=== PATIENT | female | born 1955 | race Caucasian/White ===

== ENCOUNTER 2020-04-24 09:54 | Inpatient (IN) ==
[2020-04-24] MEDS ORDERED: cefTRIAXone 2 GM ADDV.VIAL 2 GM in NS 0.9% 100 ml BAG 100 ML IVPB ONE (10:06)
[2020-04-24] MEDS ORDERED: NS 0.9% 1000 ml BAG 1,000 ML IV ONE (10:10)
[2020-04-24 10:26] LABS: ABS Lymphocytes 0.3 10^3/ul (1.0-4.8); ABS Monocytes 0.4 10^3/ul (0-0.8); ABS Neutrophils 13.2 10^3/ul (1.5-7.7); Hematocrit 39 % (35-47); Lymphocyte % 2.2 %; Mean Corpuscular HGB Conc 34 g/dL (31-36); Mean Corpuscular Hemoglobin 31 pg (27-31); Mean Corpuscular Volume 93 fL (80-97); Mean Platelet Volume 7.8 fL (7.4-10.4); Platelet Count 249 10^3/uL (150-450); Red Blood Count 4.15 10^6 /uL (3.70-4.87); Red Cell Distribution Width 13 % (10-15); White Blood Count 13.9 10^3/uL (3.5-10.8)
[2020-04-24 10:38] LABS: ALT 39 U/L (7-52); AST 34 U/L (13-39); Albumin 3.7 g/dL (3.2-5.2); Albumin/Globulin Ratio 1.4 (1-3); Alkaline Phosphatase 91 U/L (34-104); Anion Gap 8 mmol/L (2-11); BUN/Creatinine Ratio 23.4 (8-20); Blood Urea Nitrogen 18 mg/dL (6-24); C Reactive Protein 220.97 mg/L (<8.01); CO2 Carbon Dioxide 27 mmol/L (22-32); Calcium 9.1 mg/dL (8.6-10.3); Chloride 94 mmol/L (101-111); EGFR African American 91.3 (>60); EGFR Non-African American 75.5 (>60); Globulin 2.6 g/dL (2-4); Glucose 149 mg/dL (70-100); Sodium 129 mmol/L (135-145); Total Protein 6.3 g/dL (6.4-8.9)
[2020-04-24 10:47] LABS: Activated Partial Thrombo Time 29.3 seconds (26.0-38.0); INR 1.03 (0.82-1.09)
[2020-04-24 10:48] LABS: Troponin I 0.04 ng/mL (<0.03)
[2020-04-24 11:09] LABS: Influenza A Molecular Negative (Negative); Influenza B Molecular Negative (Negative)
[2020-04-24] MEDS ORDERED: Al Hydrox/Mg Hydrox/Simet LIQ 30 ML UDC PO PRN (12:39)
[2020-04-24 14:04] LABS: Troponin I 0.06 ng/mL (<0.03)
[2020-04-24] MEDS: NS 0.9% 1000 ml BAG 1,000 ML IV SCH (15:16)
[2020-04-24] MEDS: Heparin 5000 UNITS/ML 1 mL VIAL SUBCUT SCH ×2 (15:16→20:52)
[2020-04-24] MEDS: CMCS:Desvenlafaxine 50 mg TAB (NF) PO SCH (15:17)
[2020-04-24 20:55] LABS: Troponin I 0.03 ng/mL (<0.03)
[2020-04-24 23:49] LABS: Urine Appearance Cloudy; Urine Bilirubin Negative (Negative); Urine Blood Negative (Negative); Urine Color Yellow; Urine Glucose Negative (Negative); Urine Ketones Negative (Negative); Urine Nitrite Negative (Negative); Urine Protein 1+(30 mg/dL) (Negative); Urine Specific Gravity 1.021 (1.010-1.030); Urine Urobilinogen Negative (Negative)
[2020-04-24 23:53] LABS: Urine Bacteria Absent (Absent); Urine Red Blood Cell 2+(6-10/hpf) (Absent); Urine Squamous Epithelial Cell Present (Absent); Urine White Blood Cell 3+(>20/hpf) (Absent)
[2020-04-25] MEDS: NS 0.9% 1000 ml BAG 1,000 ML IV SCH ×2 (01:59→13:33)
[2020-04-25] MEDS: Heparin 5000 UNITS/ML 1 mL VIAL SUBCUT SCH ×3 (05:20→20:08)
[2020-04-25] MEDS: CMCS:Desvenlafaxine 50 mg TAB (NF) PO SCH (08:03)
[2020-04-25] MEDS: cefTRIAXone 1 gm/50 mL NS BAG 1 GM/50 ML BAG IVPB SCH (08:04)
[2020-04-25 08:51] LABS: ABS Lymphocytes 0.4 10^3/ul (1.0-4.8); ABS Monocytes 0.3 10^3/ul (0-0.8); ABS Neutrophils 9.9 10^3/ul (1.5-7.7); Eosinophil % 0.1 %; Hematocrit 33 % (35-47); Hemoglobin 11.5 g/dL (12.0-16.0); Lymphocyte % 4.1 %; Mean Corpuscular HGB Conc 34 g/dL (31-36); Mean Corpuscular Hemoglobin 32 pg (27-31); Mean Corpuscular Volume 93 fL (80-97); Mean Platelet Volume 7.8 fL (7.4-10.4); Platelet Count 198 10^3/uL (150-450); Red Blood Count 3.62 10^6 /uL (3.70-4.87); Red Cell Distribution Width 13 % (10-15); White Blood Count 10.7 10^3/uL (3.5-10.8)
[2020-04-25 09:02] LABS: BUN/Creatinine Ratio 20.7 (8-20); Calcium 8.4 mg/dL (8.6-10.3); EGFR African American 126.6 (>60); EGFR Non-African American 104.7 (>60)
[2020-04-25 11:38] LABS: C Reactive Protein 213.79 mg/L (<8.01)
[2020-04-26] MEDS: Heparin 5000 UNITS/ML 1 mL VIAL SUBCUT SCH (05:08)
[2020-04-26 07:46] LABS: BUN/Creatinine Ratio 13.2 (8-20); C Reactive Protein 132.03 mg/L (<8.01); Calcium 8.2 mg/dL (8.6-10.3); EGFR African American 140.5 (>60); EGFR Non-African American 116.1 (>60)
[2020-04-26] MEDS: CMCS:Desvenlafaxine 50 mg TAB (NF) PO SCH (07:52)
[2020-04-26] MEDS: cefTRIAXone 1 gm/50 mL NS BAG 1 GM/50 ML BAG IVPB SCH (08:08)
[2020-04-26 09:13] VITALS: BP 134/78
== END 2020-04-26 11:10 | disposition home or self-care (01) | DRG 872 ==
LOC: ED 09:54 → MEDTELE 12:39
PROVIDERS: ADMIT Internal Medicine; ATTEND Internal Medicine

== ENCOUNTER 2020-07-24 11:10 | Inpatient (IN) ==
[2020-07-24] MEDS ORDERED: Ondansetron 4 mg VIAL 2 MG/ML 2 ml VIAL IV PRN (11:38)
[2020-07-24] MEDS ORDERED: NS 0.9% 1000 ml BAG 1,000 ML IV ONE ×2 (11:41→12:05)
[2020-07-24] MEDS ORDERED: cefTRIAXone 1 gm/50 mL NS BAG 1 GM/50 ML BAG IV ONE (11:42)
[2020-07-24 12:16] LABS: ABS Eosinophils 0.2 10^3/ul (0-0.6); ABS Lymphocytes 0.9 10^3/ul (1.0-4.8); ABS Monocytes 0.5 10^3/ul (0-0.8); ABS Neutrophils 4.7 10^3/ul (1.5-7.7); Eosinophil % 2.5 %; Hematocrit 39 % (35-47); Hemoglobin 13.1 g/dL (12.0-16.0); Lymphocyte % 13.8 %; Mean Corpuscular HGB Conc 33 g/dL (31-36); Mean Corpuscular Hemoglobin 31 pg (27-31); Mean Corpuscular Volume 94 fL (80-97); Mean Platelet Volume 7.1 fL (7.4-10.4); Platelet Count 250 10^3/uL (150-450); Red Blood Count 4.19 10^6 /uL (3.70-4.87); Red Cell Distribution Width 14 % (10-15); White Blood Count 6.3 10^3/uL (3.5-10.8)
[2020-07-24 12:33] LABS: C Reactive Protein 55.08 mg/L (<8.01); EGFR African American 103.3 (>60); EGFR Non-African American 85.4 (>60); Magnesium 1.9 mg/dL (1.9-2.7); Potassium 3.9 mmol/L (3.5-5.0)
[2020-07-24] MEDS: NS 0.9% 1000 ml BAG 1,000 ML IV SCH ×2 (14:06→19:13)
[2020-07-24] MEDS: Enoxaparin 40 MG/0.4 ML SYR SUBCUT SCH (14:06)
[2020-07-25] MEDS: NS 0.9% 1000 ml BAG 1,000 ML IV SCH (04:34)
[2020-07-25 05:06] LABS: ABS Eosinophils 0.3 10^3/ul (0-0.6); ABS Lymphocytes 1.7 10^3/ul (1.0-4.8); ABS Monocytes 0.4 10^3/ul (0-0.8); ABS Neutrophils 2.5 10^3/ul (1.5-7.7); Eosinophil % 5.2 %; Hematocrit 33 % (35-47); Hemoglobin 11.3 g/dL (12.0-16.0); Lymphocyte % 34.5 %; Mean Corpuscular HGB Conc 34 g/dL (31-36); Mean Corpuscular Hemoglobin 32 pg (27-31); Mean Corpuscular Volume 95 fL (80-97); Mean Platelet Volume 7.4 fL (7.4-10.4); Platelet Count 183 10^3/uL (150-450); Red Blood Count 3.52 10^6 /uL (3.70-4.87); Red Cell Distribution Width 14 % (10-15); White Blood Count 4.8 10^3/uL (3.5-10.8)
[2020-07-25 05:25] LABS: Calcium 7.9 mg/dL (8.6-10.3); EGFR African American 128.8 (>60); EGFR Non-African American 106.4 (>60); Magnesium 1.7 mg/dL (1.9-2.7); Potassium 3.3 mmol/L (3.5-5.0)
[2020-07-25] MEDS ORDERED: Magnesium Sulfate 2 gm BAG 2 GM/50 ML BAG IVPB ONE (07:34)
[2020-07-25] MEDS ORDERED: Potassium Chlor 20 meq TAB.ER PO ONE (07:35)
[2020-07-25] MEDS: CMCS:Desvenlafaxine 50 mg TAB (NF) PO SCH (09:58)
[2020-07-25] MEDS: Amphetamine/Dextroam ER 10(NF) 10 mg CAP.ER PO SCH (09:58)
[2020-07-25] MEDS: Cholecalciferol (VIT D3) 400 units TAB PO SCH (09:59)
[2020-07-25] MEDS: cefTRIAXone 1 gm/50 mL NS BAG 1 GM/50 ML BAG IVPB SCH (12:21)
[2020-07-25] MEDS: Enoxaparin 40 MG/0.4 ML SYR SUBCUT SCH (13:34)
[2020-07-26 05:17] LABS: ABS Eosinophils 0.4 10^3/ul (0-0.6); ABS Lymphocytes 1.7 10^3/ul (1.0-4.8); ABS Monocytes 0.4 10^3/ul (0-0.8); ABS Neutrophils 1.9 10^3/ul (1.5-7.7); Eosinophil % 8.8 %; Hematocrit 36 % (35-47); Mean Corpuscular HGB Conc 33 g/dL (31-36); Mean Corpuscular Hemoglobin 32 pg (27-31); Mean Corpuscular Volume 96 fL (80-97); Mean Platelet Volume 7.1 fL (7.4-10.4); Platelet Count 217 10^3/uL (150-450); Red Blood Count 3.76 10^6 /uL (3.70-4.87); Red Cell Distribution Width 14 % (10-15); White Blood Count 4.4 10^3/uL (3.5-10.8)
[2020-07-26 05:34] LABS: Calcium 8.5 mg/dL (8.6-10.3); EGFR African American 134.2 (>60); EGFR Non-African American 110.9 (>60); Potassium 3.8 mmol/L (3.5-5.0)
[2020-07-26 08:00] VITALS: BP 126/77
[2020-07-26] MEDS: CMCS:Desvenlafaxine 50 mg TAB (NF) PO SCH (08:01)
[2020-07-26] MEDS: Amphetamine/Dextroam ER 10(NF) 10 mg CAP.ER PO SCH (08:01)
[2020-07-26] MEDS: Cholecalciferol (VIT D3) 400 units TAB PO SCH (08:02)
[2020-07-26 08:33] LABS: C Reactive Protein 13.08 mg/L (<8.01)
[2020-07-26] MEDS: cefTRIAXone 1 gm/50 mL NS BAG 1 GM/50 ML BAG IVPB SCH (12:54)
[2020-07-26] MEDS: Enoxaparin 40 MG/0.4 ML SYR SUBCUT SCH (12:58)
== END 2020-07-26 15:15 | disposition home or self-care (01) ==
LOC: ED 11:10 → MED 11:10
PROVIDERS: ADMIT Internal Medicine; ATTEND Internal Medicine

== ENCOUNTER 2020-11-23 12:02 | Inpatient (IN) ==
[2020-11-23] MEDS ORDERED: cefTRIAXone 1 gm/50 mL NS BAG 1 GM/50 ML BAG IV ONE (12:50)
[2020-11-23 13:44] LABS: ABS Lymphocytes 0.4 10^3/ul (1.0-4.8); ABS Monocytes 0.5 10^3/ul (0-0.8); ABS Neutrophils 14.2 10^3/ul (1.5-7.7); Hematocrit 42 % (35-47); Lymphocyte % 2.4 %; Mean Corpuscular HGB Conc 34 g/dL (31-36); Mean Corpuscular Hemoglobin 32 pg (27-31); Mean Corpuscular Volume 95 fL (80-97); Mean Platelet Volume 7.2 fL (7.4-10.4); Platelet Count 237 10^3/uL (150-450); Red Blood Count 4.38 10^6 /uL (3.70-4.87); Red Cell Distribution Width 14 % (10-15); White Blood Count 15.1 10^3/uL (3.5-10.8)
[2020-11-23 14:12] LABS: ALT 33 U/L (7-52); AST 20 U/L (13-39); Albumin/Globulin Ratio 1.4 (1-3); Alkaline Phosphatase 101 U/L (35-149); Anion Gap 9 mmol/L (2-11); Blood Urea Nitrogen 18 mg/dL (6-24); CO2 Carbon Dioxide 25 mmol/L (22-32); Chloride 97 mmol/L (101-111); EGFR African American 105.1 (>60); EGFR Non-African American 86.8 (>60); Globulin 2.9 g/dL (2-4); Glucose 139 mg/dL (70-100); Potassium 3.8 mmol/L (3.5-5.0); Sodium 131 mmol/L (135-145); Total Protein 6.9 g/dL (6.4-8.9)
[2020-11-23 14:14] LABS: CRP High Sensitivity > 80.00 mg/L (<2.00)
[2020-11-23 15:11] LABS: Erythrocyte Sed Rate 17 mm/Hr (0-29)
[2020-11-23] MEDS: Enoxaparin 40 MG/0.4 ML SYR SUBCUT SCH (18:32)
[2020-11-23] MEDS: NS 0.9% 1000 ml BAG 1,000 ML IV SCH (19:09)
[2020-11-24] MEDS: NS 0.9% 1000 ml BAG 1,000 ML IV SCH (01:34)
[2020-11-24 05:50] LABS: Hematocrit 38 % (35-47); Hemoglobin 12.8 g/dL (12.0-16.0); Mean Corpuscular HGB Conc 34 g/dL (31-36); Mean Corpuscular Hemoglobin 32 pg (27-31); Mean Corpuscular Volume 96 fL (80-97); Mean Platelet Volume 7.2 fL (7.4-10.4); Platelet Count 201 10^3/uL (150-450); Red Blood Count 4.01 10^6 /uL (3.70-4.87); Red Cell Distribution Width 15 % (10-15); White Blood Count 9.5 10^3/uL (3.5-10.8)
[2020-11-24 06:11] LABS: Calcium 8.5 mg/dL (8.6-10.3); EGFR African American 112.7 (>60); EGFR Non-African American 93.1 (>60); Potassium 3.5 mmol/L (3.5-5.0)
[2020-11-24] MEDS: DESVENLAFAXINE 25 MG PO SCH (09:40)
[2020-11-24] MEDS: CMCS:Desvenlafaxine 50 mg TAB (NF) PO SCH (09:40)
[2020-11-24] MEDS: cefTRIAXone 1 gm/50 mL NS BAG 1 GM/50 ML BAG IVPB SCH (09:44)
[2020-11-24] MEDS: Enoxaparin 40 MG/0.4 ML SYR SUBCUT SCH (16:23)
[2020-11-25] MEDS: CMCS:Desvenlafaxine 50 mg TAB (NF) PO SCH (09:24)
[2020-11-25] MEDS: cefTRIAXone 1 gm/50 mL NS BAG 1 GM/50 ML BAG IVPB SCH (09:42)
[2020-11-25] MEDS: DESVENLAFAXINE 25 MG PO SCH (09:42)
[2020-11-25] MEDS ORDERED: Amphetamine MIXED SALT 10mgTAB PO SCH (12:15)
[2020-11-25 12:18] VITALS: BP 129/76
== END 2020-11-25 13:15 | disposition home or self-care (01) | DRG 603 ==
LOC: ED 12:02 → MEDTELE 15:16 → SUATTDRO 15:16
PROVIDERS: ADMIT Internal Medicine; ATTEND Internal Medicine

== ENCOUNTER 2021-10-06 17:19 | Observation (INO) ==
[2021-10-06] MEDS ORDERED: Clindamycin 600 MG/D5W BAG 600 MG/50 ML BAG IV ONE (19:17)
[2021-10-06] MEDS ORDERED: NS 0.9% 1000 ml BAG 1,000 ML IV ONE (19:22)
[2021-10-06 19:32] LABS: ABS Eosinophils 0.1 10^3/ul (0-0.6); ABS Lymphocytes 0.3 10^3/ul (1.0-4.8); ABS Monocytes 0.3 10^3/ul (0-0.8); ABS Neutrophils 8.5 10^3/ul (1.5-7.7); Eosinophil % 0.6 %; Hematocrit 40 % (35-47); Hemoglobin 13.2 g/dL (12.0-16.0); Lymphocyte % 3.3 %; Mean Corpuscular HGB Conc 33 g/dL (31-36); Mean Corpuscular Hemoglobin 31 pg (27-31); Mean Corpuscular Volume 92 fL (80-97); Platelet Count 239 10^3/uL (150-450); Red Blood Count 4.31 10^6 /uL (3.70-4.87); Red Cell Distribution Width 14 % (10-15); White Blood Count 9.2 10^3/uL (3.5-10.8)
[2021-10-06 20:08] LABS: Activated Partial Thrombo Time 27.4 seconds (26.0-38.0); INR 1.01 (0.89-1.11)
[2021-10-06 20:10] LABS: Albumin 4.1 g/dL (3.2-5.2); Albumin/Globulin Ratio 1.9 (1-3); C Reactive Protein 3.1 mg/L (<8.01); CRP High Sensitivity 2.7 mg/L (<2.00); Calcium 9.1 mg/dL (8.6-10.3); Globulin 2.2 g/dL (2-4); Potassium 4.1 mmol/L (3.5-5.0); Total Bilirubin 0.4 mg/dL (0.2-1.0); Total Protein 6.3 g/dL (6.4-8.9); eGFR CKD-EPI 83.7 (>60)
[2021-10-06 21:59] LABS: Urine Appearance Clear; Urine Color Yellow; Urine Ketones Negative (Negative); Urine Specific Gravity 1.025 (1.005-1.030); Urine Urobilinogen 0.2 (Negative) (Negative)
[2021-10-06 22:00] LABS: Urine Bilirubin Negative (Negative); Urine Blood Trace (Intact) (Negative); Urine Glucose Negative (Negative); Urine Nitrite Negative (Negative); Urine Protein Negative (Negative)
[2021-10-06 22:19] LABS: Urine Bacteria Absent (Absent); Urine Red Blood Cell 1+(3-5/hpf) (Absent); Urine Squamous Epithelial Cell Present (Absent); Urine White Blood Cell 2+(11-20/hpf) (Absent)
[2021-10-06] MEDS ORDERED: NS 0.9% 1000 ml BAG 1,000 ML IV SCH (23:45)
[2021-10-06] MEDS ORDERED: cefTRIAXone 1 gm/50 mL D5W 1 GM/50 ML BAG IV ONE (23:45)
[2021-10-06] MEDS ORDERED: Al Hydrox/Mg Hydrox/Simet LIQ 30 ML UDC PO PRN (23:52)
[2021-10-07] MEDS: Enoxaparin 40 MG/0.4 ML SYR SUBCUT SCH (06:03)
[2021-10-07] MEDS: CMC:Desvenlafaxine 50 mg TAB (NF) PO SCH (08:23)
[2021-10-07] MEDS: DESVENLAFAXINE 25 MG PO SCH ×3 (08:24→11:48)
[2021-10-07] MEDS: Amphetamine/Dextroam ER 10(NF) 10 mg CAP.ER PO SCH ×2 (09:50→14:50)
[2021-10-07] MEDS ORDERED: cefTRIAXone 1 gm/50 mL D5W 1 GM/50 ML BAG IV SCH (21:00)
[2021-10-08] MEDS: Enoxaparin 40 MG/0.4 ML SYR SUBCUT SCH (05:20)
[2021-10-08 05:57] LABS: Hematocrit 35 % (35-47); Mean Corpuscular HGB Conc 34 g/dL (31-36); Mean Corpuscular Hemoglobin 31 pg (27-31); Mean Corpuscular Volume 91 fL (80-97); Platelet Count 207 10^3/uL (150-450); Red Blood Count 3.89 10^6 /uL (3.70-4.87); Red Cell Distribution Width 14 % (10-15); White Blood Count 10.1 10^3/uL (3.5-10.8)
[2021-10-08 06:30] LABS: Calcium 8.2 mg/dL (8.6-10.3); eGFR CKD-EPI 100.2 (>60)
[2021-10-08] MEDS: Amphetamine/Dextroam ER 10(NF) 10 mg CAP.ER PO SCH (08:25)
[2021-10-08] MEDS: CMC:Desvenlafaxine 50 mg TAB (NF) PO SCH (08:27)
[2021-10-08] MEDS: DESVENLAFAXINE 25 MG PO SCH (08:27)
[2021-10-08 12:20] VITALS: BP 131/75
== END 2021-10-08 14:00 | disposition home or self-care (01) ==
LOC: EDHOLD 17:19 → ED 17:19 → MED 10-07 01:15
PROVIDERS: ADMIT Internal Medicine; ATTEND Internal Medicine